=== PATIENT | male | born 1955 | race Caucasian/White ===

== ENCOUNTER 2020-07-31 00:02 | Emergency (ER) | payer OTHER, MEDICARE ==
[2020-07-31] MEDS ORDERED: methylPREDNISolone Acetate 40 mg/ml Vial ONE (00:23)
== END 2020-07-31 00:55 | disposition home or self-care (01) ==
LOC: NAV ERS 00:02
DX: L23.7 Allergic contact dermatitis due to plants, except food (principal); E78.5 Hyperlipidemia, unspecified; F17.210 Nicotine dependence, cigarettes, uncomplicated; I10 Essential (primary) hypertension
CPT/HCPCS: 96372; 99282; J2920

== ENCOUNTER 2022-03-28 06:21 | Emergency (ER) | payer OTHER ==
[2022-03-28 06:50] LABS: Bilirubin Negative (Negative); Blood, Urine Small (Negative); Clarity Clear (Clear); Glucose, Urine (Dipstick) Negative (Negative); Ketone, Urine Negative (Negative); Leukocyte Negative (Negative); Nitrite Negative (Negative); Protein, Urine (Dipstick) Negative (Neg-Trace); Specific Gravity, Urine 1.025 (1.005-1.030)
[2022-03-28 06:51] LABS: Bacteria/HPF None Seen HPF (None Seen); Squamous Epithelial None Seen HPF (0-3); WBC/HPF None Seen HPF (0-3)
[2022-03-28] MEDS ORDERED: Ketorolac Tromethamine 30 MG/ML VIAL ONE (07:05)
[2022-03-28] MEDS ORDERED: Sodium Chloride 0.9% 1,000 ML ONE ×2 (07:05→08:19)
[2022-03-28 07:09] LABS: #Basophils 0.1 thou/uL (0.0-0.2); #Eosinphils 0.3 thou/uL (0.0-0.7); #Lymphocytes 1.2 thou/uL (1.20-3.40); #Neutrophils 8.4 thou/uL (1.40-6.50); %Basophils 0.6 % (0.0-1.0); %Lymphocytes 10.6 % (21.0-51.0); %Monocytes 8.8 % (0.0-10.0); %Neutrophils 76.9 % (42.0-75.0); Hemoglobin 14.7 g/dL (14.0-18.0); Mean Corpuscular HGB CONC 33.8 g/dL (32.0-36.0); Mean Corpuscular Hemoglobin 29.9 pg (27.0-31.0); Mean Corpuscular Volume 88.7 fl (78.0-98.0); Platelet Count 259 10x3/uL (130-400); RBC Distribution Width 11.4 % (11.5-14.5); Red Blood Cell (RBC) Count 4.92 mill/uL (4.70-6.10); White Blood Cell (WBC) Count 10.9 10x3/uL (4.8-10.8)
[2022-03-28 07:23] LABS: ALT (SGPT) 23 U/L (8-55); AST (SGOT) 22 U/L (5-34); Alkaline Phosphatase 81 U/L (40-110); Anion Gap 18 mmol/L (10-20); BUN (Urea Nitrogen) 18 mg/dL (8.4-25.7); Bilirubin, Total 0.9 mg/dL (0.2-1.2); Calc. Creatinine Clearance 0 mL/min (70-130); Calcium 10.1 mg/dL (7.8-10.44); Carbon Dioxide 24 mmol/L (23-31); Chloride 103 mmol/L (98-107); Estimated GFR 48; Globulin 3.5 g/dL (2.4-3.5); Glucose 94 mg/dL (80-115); Lipase 17 U/L (8-78); Potassium 4.7 mmol/L (3.5-5.1); Protein, Total 7.5 g/dL (5.8-8.1); Sodium 140 mmol/L (136-145)
== END 2022-03-28 09:02 | disposition home or self-care (01) ==
LOC: NAV ERS 06:21
DX: N20.1 Calculus of ureter (principal); I10 Essential (primary) hypertension; E78.5 Hyperlipidemia, unspecified; F17.210 Nicotine dependence, cigarettes, uncomplicated; Z79.899 Other long term (current) drug therapy
CPT/HCPCS: 74176; 80053; 81003; 81015; 83690; 85025; 96374; J1885; J7050